=== PATIENT | female | born 2000 | race Caucasian/White ===

== ENCOUNTER 2020-08-04 22:13 | Emergency (ER) | payer OTHER, SELFPAY ==
--- NOTE | ~2020-08-04 | US_ITS ---
EXAMINATION: US OB <= 14 weeks fetus DATE: 08/05/2020 00:59 INDICATION: Abdominal pain during first trimester of TECHNIQUE: Real-time pelvic ultrasound utilizing transabdominal probe was performed. The jamie duong radiologist was not present for the study. COMPARISON: None. FINDINGS: The uterus measures 9.1 x 6.0 x 6.5 cm. There is an intrauterine gestational sac. A yolk sac and fet al pole are identified. The crown rump length measures 1.7 cm, which correlates with an estimated ges tational age of 8 weeks and 1 days. heart motion is identified measuring 176 beats per minute ( bpm) by M-mode Doppler. 1.5 x 1.7 x 1.3 cm hypoechoic region along the fundal side of the gestational sac suggestive of small subchorionic hematoma. The right and left ovaries are not visualized. There is no free fluid in the pelvis. IMPRESSION: 1. Single living fetus with heart rate of 176 bpm. 2. Gestational age by ultrasound of 8 weeks 1 day(s) +/- 5 day(s) with ultrasound estimated date of delivery ([facility]) of 03/16/2021. 3. Small likely subchorionic hematoma. Reviewed, dictated and finalized at location A. IMPRESSION: 1. Single living fetus with heart rate of 176 bpm. 2. Gestational age by ultrasound of 8 weeks 1 day(s) +/- 5 day(s) with ultraso und estimated date of delivery ([facility]) of 03/16/2021. 3. Small likely subchorionic hematoma.
[2020-08-04 22:17] VITALS: BP 117/73; PULSE 75; RESP 20; TEMP 36.7; O2SAT 97
[2020-08-04 22:48] LABS: Basophils Absolute Auto 0.1 K/mm3 (0.0-0.1); Basophils Percent Auto 0.5 % (0.2-1.2); Eosinophils Absolute Auto 0.1 K/mm3 (0-0.3); Eosinophils Percent Auto 0.8 % (0-4.4); Hematocrit 35.5 % (37.0-47.0); Immature Granulocyte Absolute 0.03 K/mm3 (0.00-0.031); Immature Granulocyte Percent A 0.3 % (0-0.5); Lymphocytes Absolute Auto 2.44 K/mm3 (0.9-3.2); Lymphocytes Percent Auto 23.2 % (18.3-44.2); Mean Corpuscular HGB Conc 33.8 g/dl (32-36); Mean Corpuscular Hemoglobin 31.3 pg (26-34); Mean Corpuscular Volume 92.4 fl (80-100); Mean Platelet Volume 10.2 fl (7.4-10.4); Monocytes Absolute Auto 0.7 K/mm3 (0.1-0.6); Neutrophils Absolute Auto 7.2 K/mm3 (1.3-6.7); Neutrophils Percent Auto 68.2 % (45.5-73.1); Platelet Count Result 244 k/mm3 (150-375); Red Blood Count 3.84 M/mm3 (4.2-5.4); Red Cell Distribution Width 12.4 % (11.5-14.5); White Blood Count 10.5 K/mm3 (4.5-10.0)
[2020-08-04 22:58] LABS: Add Urine Microscopic? YES; Appearance Urine Cloudy (Clear); Bacteria Urine Trace /hpf; Bilirubin Urine Negative (Negative); Blood Urine Negative (Negative); Color Urine Yellow (Yellow); Glucose Urine UA Negative (Negative); Ketones Urine Negative (Negative); Leukocyte Esterase Ur 2+ LEU/UL (Negative); Mucus Urine Few /lpf; Nitrate Urine Negative (Negative); Protein Urine 1+ mg/dL (Negative); RBC Urine 0-2 /hpf (0-2); Specific Grav Ur 1.029 (1.001-1.035); Squamous Epithelial Cell Urine Many /hpf (Few); Urobilinogen Urine Negative mg/dL (<2.0)
[2020-08-04 22:59] LABS: Alanine Aminotransferase 8 U/L (4-35); Albumin Level 4.1 g/dL (3.5-5.1); Alkaline Phosphatase 44 U/L (38-126); Anion Gap 6 mmol/L (8-16); Aspartate Amino Transferase 18 U/L (14-36); Bilirubin,Total 0.1 mg/dL (0.2-1.3); Blood Urea Nitrogen 10 mg/dL (7-17); Calcium 9.5 mg/dL (8.4-10.2); Carbon Dioxide 27 mmol/L (22-30); Chloride 105 mmol/L (98-107); Estimated Glomerular Filt Rate > 60; Glucose 82 mg/dL (65-105); Lipase 91 U/L (23-300); Sodium 138 mmol/L (137-145)
[2020-08-04] MEDS: SODIUM CHLORIDE 0.9% IV 1,000 ML 999 ML IV CONT (23:27)
--- NOTE | 2020-08-04 23:27 | ED.GENADULT ---
HPI - General Adult General Chief complaint: Abdominal Pain Stated complaint: abdominal pain Time Seen by Provider: 08/04/20 22:54 History of Present Illness HPI narrative: Patient 19-year-old female who presents the emergency department with chief complaint of abdominal pain. Patient reports he is proximately 8 weeks and reports this evening she started having pain in her right upper quadrant and right lower quadrant. Patient states that the pain is worse with movement and improved with rest she also reports that she is had some nausea and vomiting with this as well. Patient states her pain is starting to improve now after she vomited. The patient denies fever denies chills reports she has had no visit she had and has not had an ultrasound to confirm whether she has intrauterine . Related Data Allergies Allergy/AdvReac Type Severity Reaction Status Date / Time No Known Allergies Allergy Verified 08/04/20 23:26 Review of Systems Review of Systems: Narrative: A 10 system review of systems was completed on the patient and is negative except for what is stated in the HPI. Nursing and ancillary documentation was reviewed. [facility] Social History Social History Gender identity (if verbalized by the patient): Female Exam Narrative: Exam Narrative: GENERAL: Well-appearing, well-nourished, and in no acute distress. HEAD: Normocephalic, atraumatic. EYES: PERRLA and EOMI. ENT: Nares clear, no rhinorrhea or epistaxis. Mucous membranes moist. NECK: Supple. CHEST: Clear to auscultation. No respiratory distress. HEART: Regular rate and rhythm. No murmur heard. Normal peripheral pulses. ABDOMEN: Soft, tender in the right and left lower quadrant there is also mild tenderness to palpation of the right upper quadrant., nondistended, normal active bowel sounds. EXTREMITIES: Normal range of motion. No edema. SKIN: Warm, dry, no rash. NEURO: No focal deficits. Alert and oriented x3. PSYCH: Normal mood and affect. Course Vital Signs Vital signs: Vital Signs Temperature 36.7 C 08/04/20 22:17 Pulse Rate 75 08/04/20 22:17 Respiratory Rate 20 08/04/20 22:17 Blood Pressure 117/73 08/04/20 22:17 Pulse Oximetry 97 08/04/20 22:17 Temperature 36.7 C 08/04/20 22:17 Pulse Rate 77 08/05/20 00:14 Respiratory Rate 16 08/05/20 00:14 Blood Pressure 94/66 L 08/05/20 00:14 Pulse Oximetry 100 08/05/20 00:14 Medical Decision Making Vital Signs Vital Signs: Vital Signs Temperature 36.7 C 08/04/20 22:17 Pulse Rate 75 08/04/20 22:17 Respiratory Rate 20 08/04/20 22:17 Blood Pressure 117/73 08/04/20 22:17 Pulse Oximetry 97 08/04/20 22:17 Temperature 36.7 C 08/04/20 22:17 Pulse Rate 77 08/05/20 00:14 Respiratory Rate 16 08/05/20 00:14 Blood Pressure 94/66 L 08/05/20 00:14 Pulse Oximetry 100 08/05/20 00:14 Lab Data Result diagrams: 08/04/20 22:37 08/04/20 22:38 Labs: Lab Results 08/04/20 08/04/20 08/04/20 Range/Units 22:37 22:37 22:38 WBC 10.5 H (4.5-10.0) K/mm3 RBC 3.84 L (4.2-5.4) M/mm3 Hgb 12.0 (12.0-15.0) g/dL Hct 35.5 L (37.0-47.0) % MCV 92.4 (80-100) fl MCH 31.3 (26-34) pg MCHC 33.8 (32-36) g/dl RDW 12.4 (11.5-14.5) % Plt Count 244 (150-375) k/mm3 MPV 10.2 (7.4-10.4) fl Immature Gran % (Auto) 0.3 (0-0.5) % Neut % (Auto) 68.2 (45.5-73.1) % Lymph % (Auto) 23.2 (18.3-44.2) % [place] % (Auto) 7.0 (2.6-8.5) % Eos % (Auto) 0.8 (0-4.4) % Baso % (Auto) 0.5 (0.2-1.2) % Lymph # (Auto) 2.44 (0.9-3.2) K/mm3 [place] # (Auto) 0.7 H (0.1-0.6) K/mm3 Eos # (Auto) 0.1 (0-0.3) K/mm3 Baso # (Auto) 0.1 (0.0-0.1) K/mm3 Abs Immat Gran (auto) 0.03 (0.00-0.031) K/mm3 Absolute Neuts (auto) 7.2 H (1.3-6.7) K/mm3 Absolute Nucleated RBC 0.0 (0.0-0.012) K/mm3
[2020-08-04] MEDS: METOCLOPRAMIDE HCL INJ 10 MG/2 ML VIAL IV PUSH (23:29)
[2020-08-05 00:14] VITALS: BP 94/66; PULSE 77; RESP 16; O2SAT 100
--- NOTE | 2020-08-05 00:35 | PC.NURSE ---
ultrasound here at this time
[2020-08-05 01:40] VITALS: BP 96/60; PULSE 75; RESP 14; O2SAT 100
== END 2020-08-05 01:40 | disposition home or self-care (01) ==
PROVIDERS: Emergency Provider Emergency Medicine
DX: O26.891 Other specified pregnancy related conditions, first trimester (principal); R10.11 Right upper quadrant pain; O21.9 Vomiting of pregnancy, unspecified; Z3A.08 8 weeks gestation of pregnancy
CPT/HCPCS: 36415; 76801; 80053; 81001; 81025; 83690; 84702; 85025; 85461; 96361; 96374; 99284; J2765; J7030

== ENCOUNTER 2022-01-24 11:39 | Emergency (ER) | payer OTHER, SELFPAY ==
[2022-01-24 12:06] VITALS: BP 115/71; PULSE 99; RESP 18; TEMP 36.4; O2SAT 97
--- NOTE | 2022-01-24 12:17 | ED.URI ---
HPI - URI/Sore Throat General Chief Complaint: Upper Respiratory Infection Stated Complaint: cough,congestion Time Seen by Provider: 01/24/22 12:17 Source: patient Mode of arrival: ambulatory Limitations: no limitations History of Present Illness HPI Narrative: 21-year-old female presents with complaint runny nose, nasal congestion, cough, fatigue for 3 days. Afebrile. Complaining back and chest pain from coughing. Not taking any medication to treat symptoms due to . Denies shortness of breath. No nausea vomiting diarrhea. All systems reviewed and negative except as noted above. Related Data Home Medications Medication Instructions Recorded Confirmed escitalopram oxalate 10 mg tablet 10 mg DAILY 01/24/22 01/24/22 Allergies Allergy/AdvReac Type Severity Reaction Status Date / Time No Known Allergies Allergy Verified 01/24/22 12:21 Review of Systems Review of Systems: CONSTITUTIONAL: Denies fever, chills, or sweats. EYES: Denies visual changes, redness, or discharge. ENT: Reports rhinorrhea, congestion.sore throat, or otalgia. CARDIOVASCULAR: Denies chest pain, palpitations, or edema. RESPIRATORY: Reports cough. Denies dyspnea. GASTROINTESTINAL: Denies abdominal pain, nausea, vomiting, or diarrhea. GENITOURINARY: Denies dysuria or hematuria. SKIN: Denies rash or itching. MUSCULOSKELETAL: Denies back pain, joint pain, or myalgia. NEUROLOGIC: Denies headache, numbness, or weakness. PSYCHIATRIC: Denies anxiety or depression. All other systems reviewed are negative, except as documented in HPI. PMFSH Social History Social History Gender identity (if verbalized by the patient): Female Comments At time of signature, agree with nursing past medical, surgical, social and family history. There is no relevant family history pertinent to the presenting complaint. Exam Narrative: GENERAL: This is a well-nourished, well-developed patient, in no apparent distress. HEAD: normocephalic, atraumatic. EYES: PERRL. Sclera clear/white. Vision is grossly intact. EARS: External ears normal, auditory canals clear and without drainage, TMs normal without perforation. Hearing grossly intact. NOSE: External nose normal with clear nasal drainage. No erythema to nares. THROAT: Mucous membranes moist, posterior pharynx clear. NECK: Neck supple, non-tender without lymphadenopathy, masses or thyromegaly. CARDIOVASCULAR: Regular rate and rhythm without murmurs, gallops, or rubs. RESPIRATORY: Clear to auscultation. Breath sounds equal bilaterally. No wheezes, rales, or rhonchi. SKIN: warm, Dry, intact with no suspicious lesions or rash, good texture and turgor. NEURO: awake, alert, and oriented to person, place and time. There were no obvious focal neurologic abnormalities. EXTREMITIES: No joint tenderness, effusion, or edema noted. Course Course Level of Care: Express Care Visit Vital Signs Vital signs: Vital Signs Temperature 36.4 C 01/24/22 12:06 Pulse Rate 99 01/24/22 12:06 Respiratory Rate 18 01/24/22 12:06 Blood Pressure 115/71 01/24/22 12:06 Pulse Oximetry 97 01/24/22 12:06 Oxygen Delivery Room Air 01/24/22 12:06 Temperature 36.4 C 01/24/22 12:06 Pulse Rate 99 01/24/22 12:06 Respiratory Rate 18 01/24/22 12:06 Blood Pressure 115/71 01/24/22 12:06 Pulse Oximetry 97 01/24/22 12:06 Oxygen Delivery Room Air 01/24/22 12:06 reviewed MDM - URI/Sore Throat MDM Narrative Medical decision making narrative: Patient is aware of diagnosis, understands and agrees to treatment plan. Anticipatory guidance given. Patient agrees to follow-up as directed and is aware of reasons to seek care at the emergency department. Portions of this record may have been created with voice recognition software patient's son here also being seen for similar symptoms. Son tested positive for RSV. Patient's sympto
== END 2022-01-24 12:40 | disposition home or self-care (01) ==
PROVIDERS: Emergency Provider Nurse Practitioner Family
DX: J06.9 Acute upper respiratory infection, unspecified (principal)
CPT/HCPCS: 99211; G0463

== ENCOUNTER 2022-02-19 18:26 | Emergency (ER) | payer OTHER, SELFPAY ==
[2022-02-19 19:12] VITALS: BP 122/71; PULSE 89; RESP 18; TEMP 37.2; O2SAT 99
--- NOTE | 2022-02-19 19:36 | ED.URI ---
HPI - URI/Sore Throat General Chief Complaint: Upper Respiratory Infection Stated Complaint: nausea Time Seen by Provider: 02/19/22 19:20 Source: patient Mode of arrival: ambulatory Limitations: no limitations History of Present Illness HPI Narrative: Svetlana is a 21-year-old female patient presenting to the clinic today with complaints nausea, lower abdominal pain, and rectal bleeding. States she has been nauseated over the last 24 hours however she has not vomited. She noticed bright red blood in the stool today when she had a normal bowel movement. Reports that the bowel movement was not very hard but was not soft. History of hemorrhoids in the past. MD elicited complaint: sore throat and nasal congestion Related Data Home Medications Medication Instructions Recorded Confirmed escitalopram oxalate 10 mg tablet 10 mg DAILY 01/24/22 02/19/22 Allergies Allergy/AdvReac Type Severity Reaction Status Date / Time No Known Allergies Allergy Verified 02/19/22 19:02 Review of Systems Review of Systems: Pertinent positives per HPI. Patient denies any fever, chills, rash, headache, visual changes, dizziness, cough, runny nose, sore throat, shortness of breath, chest pain, palpitations, vomiting, diarrhea, or any urinary issues. PMFSH Social History Social History Gender identity (if verbalized by the patient): Female Comments At the time of my signature, I reviewed and agree with the nursing past medical, surgical, social, and family history. There is no relevant family history pertinent to the patient complaint. Exam Narrative: General: Well-developed, well nourished, in no apparent distress Head: Normocephalic, atraumatic Eyes: Pupils equally round and reactive to light bilaterally, EOM intact, sclera and conjunctive clear, no discharge, lids normal Ears: TMs intact and clear, ear canals clear, no drainage, grossly hearing normal. Nose: Nares patent, clear nasal discharge, no inflammation, no sinus tenderness. Mouth: Oral pharynx without lesions or masses, good dentition, MMM. oropharynx red Neck: Supple, trachea midline, no enlargement of anterior or posterior cervical nodes, no thyroid masses or goiter palpable. Cardio: Regular rate and rhythm, s1 and s2 normal, no murmur appreciated. Resp: Clear to auscultation bilaterally, no rhonchi, rales, wheezing or rubs Abdomen: Soft, pliable, mild tenderness to palpation over the lower abdomen, no organomegaly, bowel sounds present all 4 quadrants, no CVAT tenderness Rectum: Vi RN at bedside. No rectal masses. Has small hemorrhoid at 12:00 p.m. that is not currently bleeding, dried blood noted to the right buttocks Course Course Emergency Course: Portions of this record may have been created with voice recognition software. Level of Care: Express Care Visit Vital Signs Vital signs: Vital Signs Temperature 37.2 C 02/19/22 19:12 Pulse Rate 89 02/19/22 19:12 Respiratory Rate 18 02/19/22 19:12 Blood Pressure 122/71 02/19/22 19:12 Pulse Oximetry 99 02/19/22 19:12 Oxygen Delivery Room Air 02/19/22 19:12 Temperature 37.2 C 02/19/22 19:12 Pulse Rate 89 02/19/22 19:12 Respiratory Rate 18 02/19/22 19:12 Blood Pressure 122/71 02/19/22 19:12 Pulse Oximetry 99 02/19/22 19:12 Oxygen Delivery Room Air 02/19/22 19:12 Vital signs reviewed MDM - URI/Sore Throat MDM Narrative Medical decision making narrative: At the time of visit patient is resting comfortably on the exam table. Abdomen is nontender to palpation, she has a hemorrhoid at 12:00 p.m. that is not bleeding currently. She denies any rectal pain. I suspect that she has a bleeding hemorrhoid with constipation. Discussed increasing fluids and fiber in her diet will give her prescription for some MiraLax and some nausea medicine today. Strep screen was obtained and was negative. Differential Leandra
== END 2022-02-19 19:45 | disposition home or self-care (01) ==
PROVIDERS: Emergency Provider Nurse Practitioner Family
DX: K64.9 Unspecified hemorrhoids (principal); K59.00 Constipation, unspecified; R11.0 Nausea; R10.31 Right lower quadrant pain; R10.32 Left lower quadrant pain
CPT/HCPCS: 87880; 99213; G0463

== ENCOUNTER 2022-03-01 22:08 | Emergency (ER) | payer OTHER, SELFPAY ==
[2022-03-01 22:11] VITALS: BP 140/73; PULSE 95; RESP 18; TEMP 37.5; O2SAT 100
--- NOTE | 2022-03-01 23:07 | ED.GENADULT ---
HPI - General Adult General Chief complaint: Unspecified Stated complaint: earache Time Seen by Provider: 03/01/22 22:18 History of Present Illness HPI narrative: This is a 21-year-old female presenting ED with chief complaint of ear pain. Patient says that she has been having difficulty hearing on your last 2 days. Today became acutely painful. She denies fever chills, nausea vomiting diarrhea cough congestion sore throat urinary symptoms or GI symptoms. Related Data Home Medications Medication Instructions Recorded Confirmed escitalopram oxalate 10 mg tablet 10 mg DAILY 01/24/22 02/19/22 Allergies Allergy/AdvReac Type Severity Reaction Status Date / Time No Known Allergies Allergy Verified 02/19/22 19:02 Review of Systems Review of Systems: CONSTITUTIONAL: Denies night sweats. EYES: No eye pain ENT: Denies rhinorrhea CARDIOVASCULAR: Denies palpitations RESPIRATORY: Denies hemoptysis GASTROINTESTINAL: Denies hematemesis GENITOURINARY: Denies hematuria. SKIN: Denies rash MUSCULOSKELETAL: Denies myalgia. NEUROLOGIC: Denies weakness. PSYCHIATRIC: Denies delusions PMFSH Social History Social History Gender identity (if verbalized by the patient): Female Exam Narrative: APPEARANCE: No apparent distress. Head: Left eye has a bulging Erythematoustympanic membrane with loss of landmarks consistent with otitis media. EYES: EOMI, NOSE: Atraumatic NECK: Trachea midline RESPIRATORY: No increased rate of breathing CARDIOVASCULAR: RRR, ABDOMINAL: Non-distended MUSCULOSKELETAl: No obvious deformities NEURO: Alert. Moving 4/4 extremities SKIN:: Warm, dry. Normal color PSYCHIATRIC: Normal affect Course Vital Signs Vital signs: Vital Signs Temperature 99.5 F 03/01/22 22:11 Pulse Rate 95 03/01/22 22:11 Respiratory Rate 18 03/01/22 22:11 Blood Pressure 140/73 03/01/22 22:11 Pulse Oximetry 100 03/01/22 22:11 Oxygen Delivery Room Air 03/01/22 22:11 Temperature 99.5 F 03/01/22 22:11 Pulse Rate 95 03/01/22 22:11 Respiratory Rate 18 03/01/22 22:11 Blood Pressure 140/73 03/01/22 22:11 Pulse Oximetry 100 03/01/22 22:11 Oxygen Delivery Room Air 03/01/22 22:11 Medical Decision Making MDM Narrative Medical decision making narrative: 21-year-old presenting with ear pain. Physical exam showed acute otitis media the left ear. Patient be treated with NSAIDs and antibiotics. She will be given primary care follow-up. Vital Signs Vital Signs: Vital Signs Temperature 99.5 F 03/01/22 22:11 Pulse Rate 95 03/01/22 22:11 Respiratory Rate 18 03/01/22 22:11 Blood Pressure 140/73 03/01/22 22:11 Pulse Oximetry 100 03/01/22 22:11 Oxygen Delivery Room Air 03/01/22 22:11 Temperature 99.5 F 03/01/22 22:11 Pulse Rate 95 03/01/22 22:11 Respiratory Rate 18 03/01/22 22:11 Blood Pressure 140/73 03/01/22 22:11 Pulse Oximetry 100 03/01/22 22:11 Oxygen Delivery Room Air 03/01/22 22:11 Discharge Plan Discharge Clinical Impression: Acute otitis media Patient Disposition: Home, Self-Care Condition: Stable Instructions: Antibiotic Form, Ear Infection (ED) Additional Instructions: Please take Augmentin for 7 days twice daily. Please use Motrin Tylenol for pain control please follow-up with primary care physician for further management Prescriptions: New amoxicillin-pot clavulanate 875-125 mg tablet 1 tablet PO Q12H Qty: 14 0RF acetaminophen 500 mg tablet 1,000 mg PO TID PRN (Reason: oskar) 7 Days Qty: 42 0RF ibuprofen 800 mg tablet 800 mg PO TID PRN (Reason: pain) 7 Days Qty: 21 0RF No Action escitalopram oxalate 10 mg tablet 10 mg DAILY polyethylene glycol 3350 [Miralax] 17 gram/dose powder 17 g PO DAILY Qty: 119 0RF Follow-up/Referrals: NON-NURSING STAFF,ADMISSIONS [Primary Care Provider] -
[2022-03-01] MEDS: IBUPROFEN 400 MG TABLET 800 MG PO (23:25)
[2022-03-01] MEDS: ACETAMINOPHEN 500 MG TABLET 1000 MG PO (23:25)
[2022-03-01] MEDS: AMOXICILLIN/CLAVULANATE K 875-125 MG TAB 1 TABLET PO (23:26)
[2022-03-01 23:27] VITALS: BP 115/73; PULSE 84; RESP 16; O2SAT 100
== END 2022-03-01 23:32 | disposition home or self-care (01) ==
PROVIDERS: Emergency Provider Emergency Medicine
DX: H66.92 Otitis media, unspecified, left ear (principal)
CPT/HCPCS: 99283; A9270

== ENCOUNTER 2022-03-30 19:15 | Emergency (ER) | payer OTHER, SELFPAY ==
[2022-03-30 19:40] VITALS: BP 115/67; PULSE 92; RESP 18; TEMP 36.9; O2SAT 99
[2022-03-30 19:49] VITALS: BP 115/67; PULSE 92; RESP 18; TEMP 36.9; O2SAT 99
--- NOTE | 2022-03-30 19:53 | ED.URI ---
HPI - URI/Sore Throat General Chief Complaint: Upper Respiratory Infection Stated Complaint: bilateral ear pain,throat irritation Time Seen by Provider: 03/30/22 19:53 Source: patient and RN notes reviewed Mode of arrival: ambulatory Limitations: no limitations History of Present Illness HPI Narrative: 21-year-old female presented for complaint of sore/itchy throat and bilateral ear itching for about 2 days. endorses sinus congestion and drainage. She has not taken anything for symptoms. She is currently . She denies shortness of breath, wheezing, nausea, vomiting, diarrhea, fevers or chills MD elicited complaint: cough Related Data Home Medications Medication Instructions Recorded Confirmed ondansetron 8 mg disintegrating 8 mg PO PRN PRN Nausea 03/30/22 03/30/22 tablet sumatriptan succinate 25 mg tablet 25 mg PO PRN PRN Migraine Headache 03/30/22 03/30/22 Allergies Allergy/AdvReac Type Severity Reaction Status Date / Time No Known Allergies Allergy Verified 03/30/22 19:47 Review of Systems Review of Systems: per [facility] Social History Social History Gender identity (if verbalized by the patient): Female Exam Narrative: GENERAL: well-appearing EYES: PERRLA, conjunctivae clear ENT: Mucous membranes moist. TMs pearly carrero with dull light reflex bilaterally; no tragal tenderness. Oropharynx erythematous without lesions or exudate, tonsils enlarged 2+ no drooling, no hoarseness, no trismus, uvula midline. No tripod positioning, muffled voice, soft palate or pharyngeal wall bulging NECK: Supple. No lymphadenopathy CHEST: Clear to auscultation, breath sounds equal. HEART: Regular rate and rhythm. SKIN: Warm, dry, no rash. NEURO: Alert and oriented x3. Course Course Emergency Course: Patient is aware of diagnosis, understands and agrees to treatment plan. Anticipatory guidance given. Patient agrees to follow-up as directed and is aware of reasons to seek care at the emergency department. Portions of this record may have been created with voice recognition software Level of Care: Express Care Visit Vital Signs Vital signs: Vital Signs Temperature 98.4 F 03/30/22 19:40 Pulse Rate 92 03/30/22 19:40 Respiratory Rate 18 03/30/22 19:40 Blood Pressure 115/67 03/30/22 19:40 Pulse Oximetry 99 03/30/22 19:40 Oxygen Delivery Room Air 03/30/22 19:40 Temperature 98.4 F 03/30/22 19:49 Pulse Rate 92 03/30/22 19:49 Respiratory Rate 18 03/30/22 19:49 Blood Pressure 115/67 03/30/22 19:49 Pulse Oximetry 99 03/30/22 19:49 Oxygen Delivery Room Air 03/30/22 19:49 reviewed MDM - URI/Sore Throat MDM Narrative Medical decision making narrative: strep negative. Results reviewed with patient. Advised supportive measures and signs/symptoms to go to the ER. Pt is appropriate for outpt treatment and f/u. Differential Diagnosis Differential diagnosis: Likely upper respiratory infection, sinusitis and viral infection Lab Data Labs: Strep Screen Presumptive Negative *(Reference Range: Negative)* Discharge Plan Discharge Clinical Impression: Upper respiratory infection Patient Disposition: Home, Self-Care Condition: Stable Additional Instructions: Rapid strep swab was negative today You will be notified in a few days if the culture comes back positive for strep, and appropriate antibiotics will be called in at that time. if symptoms are due to a viral illness, it is not treated with antibiotics. Viral symptoms can be present for up to 10-14 days. Recommend Flonase spray and saline spray for sinus congestion Tylenol every 8 hours as needed for pain Symptomatic treatment includes: rest, fluids, and increase humidity of the air at home. --Follow up with your PCP if symptoms are not improving, or sooner if symptoms are w
== END 2022-03-30 20:19 | disposition home or self-care (01) ==
PROVIDERS: Emergency Provider Nurse Practitioner Family
DX: J06.9 Acute upper respiratory infection, unspecified (principal)
CPT/HCPCS: 87081; 87880; 99213; G0463